=== PATIENT | male | born 1950 | race Caucasian/White ===

== ENCOUNTER 2021-12-19 07:31 | Day surgery (SDC) | payer MEDICARE, OTHER ==
[~2021-12-19 07:31] MED LIST: Lactated Ringers 1,000 ML IV PRN
[2021-12-19] MEDS ORDERED: Midazolam 1 MG/ML 2 ML SDV IV ONE (07:32)
[2021-12-19] MEDS ORDERED: fentaNYL 100 MCG/2 ML SDV IV ONE (07:32)
[2021-12-19] MEDS ORDERED: Sodium Chloride 0.9% 10 ML Syringe IV ONE (07:32)
[2021-12-19] MEDS: Sodium Chloride 0.9% 10 ML Syringe FLUSH PRN (08:15)
[2021-12-19] MEDS: acetaZOLAMIDE 500 MG Cap.ER PO ONE (09:28)
[2021-12-19 09:44] VITALS: BP 115/90; PULSE 74
== END 2021-12-19 09:50 | disposition home or self-care (01) ==
LOC: FB.SDS 07:31
PROVIDERS: ATTEND Ophthalmology
DX: H25.813 Combined forms of age-related cataract, bilateral (principal); H40.1131 Primary open-angle glaucoma, bilateral, mild stage; H43.813 Vitreous degeneration, bilateral; H52.13 Myopia, bilateral; H40.1111 Primary open-angle glaucoma, right eye, mild stage; J44.9 Chronic obstructive pulmonary disease, unspecified; F17.210 Nicotine dependence, cigarettes, uncomplicated; Z79.899 Other long term (current) drug therapy
CPT/HCPCS: 00142-QZ; A9270-GY; C1783; J2250; J3010; J3490; V2632

== ENCOUNTER 2022-01-02 07:24 | Day surgery (SDC) | payer MEDICARE, OTHER ==
[2022-01-02] MEDS ORDERED: Midazolam 1 MG/ML 2 ML SDV IV ONE (07:25)
[2022-01-02] MEDS ORDERED: Lactated Ringers 1,000 ML IV PRN (07:30)
[2022-01-02] MEDS: Sodium Chloride 0.9% 10 ML Syringe FLUSH PRN (08:05)
[2022-01-02] MEDS: acetaZOLAMIDE 500 MG Cap.ER PO ONE (09:52)
[2022-01-02 15:09] VITALS: BP 139/69; PULSE 60
== END 2022-01-02 10:08 | disposition home or self-care (01) ==
LOC: FB.SDS 07:24
PROVIDERS: ATTEND Ophthalmology
DX: H25.813 Combined forms of age-related cataract, bilateral (principal); H40.1131 Primary open-angle glaucoma, bilateral, mild stage; H43.813 Vitreous degeneration, bilateral; H52.13 Myopia, bilateral; J44.9 Chronic obstructive pulmonary disease, unspecified; F17.210 Nicotine dependence, cigarettes, uncomplicated; R00.9 Unspecified abnormalities of heart beat; Z79.899 Other long term (current) drug therapy
CPT/HCPCS: 00142-QZ; A9270-GY; C1783; J2250; J3490; V2632